=== PATIENT | female | born 1985 | race African-American/Black ===

== ENCOUNTER 2023-05-03 17:39 | Emergency (ER) | payer MEDICAID ==
[~2023-05-03] VITALS: Ht 175.3 cm; Wt 81.6 kg
[2023-05-03 18:13] VITALS: BP 128/84; PULSE 95; RESP 20; TEMP 98.8; O2SAT 100
[2023-05-03] MEDS ORDERED: AMOX-1230 PO (18:39)
== END 2023-05-03 19:20 | disposition home or self-care (01) ==
LOC: MED 17:39
DX: S81.852A Open bite, left lower leg, initial encounter (principal); Z79.899 Other long term (current) drug therapy; W54.0XXA Bitten by dog, initial encounter; Y93.89 Activity, other specified; Y92.89 Other specified places as the place of occurrence of the external cause; Y99.8 Other external cause status
CPT/HCPCS: 90471; 90715; 99283

== ENCOUNTER 2023-05-19 08:10 | Emergency (ER) | payer MEDICAID ==
[~2023-05-19] VITALS: Ht 172.7 cm; Wt 88.5 kg
[~2023-05-19 08:10] MED LIST: AMOX-1230 PO
[2023-05-19 08:38] VITALS: BP 142/91; PULSE 86; RESP 18; TEMP 98; O2SAT 98
[2023-05-19] MEDS ORDERED: HYD1C TP (09:12)
[2023-05-19] MEDS ORDERED: DIPH25TA53 PO (09:12)
== END 2023-05-19 09:45 | disposition home or self-care (01) ==
LOC: MED 08:10
DX: R21 Rash and other nonspecific skin eruption (principal); Z79.899 Other long term (current) drug therapy
CPT/HCPCS: 99282

== ENCOUNTER 2023-05-31 09:26 | Emergency (ER) | payer MEDICAID ==
[~2023-05-31] VITALS: Ht 175.3 cm; Wt 81.6 kg
[~2023-05-31 09:26] MED LIST changes: +DIPH25TA53 PO; +HYD1C TP
[2023-05-31 09:40] VITALS: BP 154/83; PULSE 95; RESP 18; TEMP 97.3; O2SAT 99
[2023-05-31 11:23] LABS: APPEARANCE,URINE CLEAR (CLEAR); BILIRUBIN,URINE NEGATIVE (NEGATIVE); BLOOD, URINE NEGATIVE (NEGATIVE); COLOR,URINE YELLOW (YELLOW); LEUKOCYTE ESTERASE ,URINE NEGATIVE (NEGATIVE); NITRITE, URINE NEGATIVE (NEGATIVE); PROTEIN,URINE NEGATIVE (NEGATIVE); UGLUCOSE NEGATIVE (NEGATIVE); UROBILINOGEN,URINE 0.2 EU/dL (0.2 - 1)
[2023-05-31 11:34] LABS: BASOPHILS # (AUTO) 0.1 K/uL (0.00-0.22); EOSINOPHILS # (AUTO) 0.1 K/uL (0-0.4); EOSINOPHILS % (AUTO) 1.3 % (0.0-4.0); HEMATOCRIT 36.7 % (36-48); HEMOGLOBIN 12.4 g/dL (12.0-16.0); LYMPHOCYTES # (AUTO) 1.8 K/uL (2.5-16.5); LYMPHOCYTES % (AUTO) 32.2 % (20.5-51.1); MEAN CORPUSCULAR HEMOGLOBIN 31 pg (27-31); MEAN CORPUSCULAR HGB CONC 34 g/dL (33-37); MEAN CORPUSCULAR VOLUME 90.5 fL (80-94); MONOCYTES # (AUTO) 0.6 K/uL (0.8-1.0); MONOCYTES % (AUTO) 10.3 % (1.7-9.3); NEUTROPHILS # (AUTO) 3.1 K/uL (1.8-7.7); NEUTROPHILS % (AUTO) 55.2 % (42.2-75.2); PLATELET COUNT (AUTO) 284 K/uL (140-450); RED BLOOD CELL COUNT(AUTO) 4.05 MIL/uL (4.20-5.40); RED CELL DISTRIBUTION WIDTH 12.5 % (11.6-13.7); WHITE BLOOD COUNT (AUTO) 5.7 K/uL (4.8-10.8)
[2023-05-31 11:49] LABS: ALBUMIN 4.1 g/dL (3.4-5.0); ANION GAP 11.8 (8-16); CALCIUM 9.3 mg/dL (8.5-10.1); CREATININE 0.8 mg/dL (0.6-1.3); POTASSIUM 3.8 mmol/L (3.5-5.1); TOTAL BILIRUBIN 1.6 mg/dL (0.0-1.0); TOTAL PROTEIN, SERUM 6.9 g/dL (6.4-8.2)
[2023-05-31 13:28] VITALS: BP 154/83; PULSE 95; RESP 18; TEMP 97.3; O2SAT 99
== END 2023-05-31 13:28 | disposition home or self-care (01) ==
LOC: MED 09:26
DX: F41.9 Anxiety disorder, unspecified (principal); R68.2 Dry mouth, unspecified; E80.7 Disorder of bilirubin metabolism, unspecified; Z79.899 Other long term (current) drug therapy; Z79.2 Long term (current) use of antibiotics; Z91.018 Allergy to other foods
CPT/HCPCS: 36415; 80053; 81003; 81025; 85025; 99283

== ENCOUNTER 2024-01-09 08:33 | Emergency (ER) | payer MEDICAID, OTHER ==
[~2024-01-09] VITALS: Ht 175.3 cm; Wt 86.2 kg
[2024-01-09 08:42] VITALS: BP 139/91; PULSE 103; RESP 18; TEMP 97.8; O2SAT 100
[2024-01-09] MEDS ORDERED: IBUP-2213 PO (09:04)
[2024-01-09 09:10] VITALS: BP 132/110; PULSE 103; RESP 18; TEMP 97.8; O2SAT 100
== END 2024-01-09 09:10 | disposition home or self-care (01) ==
LOC: MED 08:33
DX: N64.4 Mastodynia (principal); Z79.899 Other long term (current) drug therapy; Z91.018 Allergy to other foods
CPT/HCPCS: 99282

== ENCOUNTER 2024-03-06 11:51 | Emergency (ER) | payer OTHER ==
[~2024-03-06] VITALS: Ht 175.3 cm; Wt 86.2 kg
[~2024-03-06 11:51] MED LIST changes: +IBUP-2213 PO
[2024-03-06 12:11] VITALS: BP 121/76; PULSE 99; RESP 18; TEMP 97.8; O2SAT 100
[2024-03-06] MEDS: IBUPROFEN 600 MG TAB PO ONE (14:22)
[2024-03-06] MEDS ORDERED: METH-1681 PO (14:53)
[2024-03-06] MEDS ORDERED: DICL100G32 TP (14:53)
[2024-03-06] MEDS ORDERED: ACET-10509 PO (14:53)
[2024-03-06 15:13] VITALS: BP 123/74; PULSE 77; RESP 18; TEMP 98; O2SAT 98
== END 2024-03-06 15:13 | disposition home or self-care (01) ==
LOC: MED 11:51
DX: S39.012A Strain of muscle, fascia and tendon of lower back, initial encounter (principal); S16.1XXA Strain of muscle, fascia and tendon at neck level, initial encounter; S96.912A Strain of unspecified muscle and tendon at ankle and foot level, left foot, initial encounter; S09.90XA Unspecified injury of head, initial encounter; R03.0 Elevated blood-pressure reading, without diagnosis of hypertension; Z79.1 Long term (current) use of non-steroidal anti-inflammatories (NSAID); Z79.2 Long term (current) use of antibiotics; Z79.899 Other long term (current) drug therapy; Z91.018 Allergy to other foods; W01.0XXA Fall on same level from slipping, tripping and stumbling without subsequent striking against object, initial encounter; Y93.89 Activity, other specified; Y92.89 Other specified places as the place of occurrence of the external cause; Y99.8 Other external cause status
CPT/HCPCS: 73660; 99283